=== PATIENT | male | born 1965 | race Caucasian/White ===

== ENCOUNTER 2017-05-24 14:13 | Inpatient (IN) | payer OTHER ==
[~2017-05-24] VITALS: Ht 152.4 cm; Wt 83.9 kg
[~2017-05-24 14:13] MED LIST: QUET300T2 PO
[2017-05-24 14:30] VITALS: BP 150/76
--- NOTE | 2017-05-24 14:30 | NUR ---
Pre-Admission Note: Client is seen in intake at this time. Appears flushed, anxious and irritable. He is alert and oriented x 4. Able to make his needs known. Able to answer questions regarding the admission process appropriately. Verbalized good understanding of the admission process. He reports NKA and with hx of seizure related to withdrawals, last one was on July 2016. He states that he is here to detox from ETOH, he reports drinking wine and vodka. Last drink was 2 hours prior to admission and drank 2 glasses of jacque. He reports that he has extensive hx of substance abuse in the family. But would not specify who. Reports that Dr. Roberts is his PCP and was last seen 3 weeks prior to coming in to detox. Client was educated on the admission process and will continue with the admission process when patient goes into the unit. Temp 97.5, Pulse 94 RR 19, O2 sat 94% RA BP 177/76 PL 0/10. CIWA 2 due to anxiety, mild sweats and mild agitation. Dr. Hinkle in to see the patient while in intake and will enter in admission orders.
[2017-05-24] MEDS ORDERED: ACETAMINOPHEN 325 MG TABLET PO PRN (14:45)
[2017-05-24] MEDS ORDERED: THIAMINE HCL 200 MG/2 ML VIAL IM ONE (14:45)
[2017-05-24] MEDS ORDERED: DICYCLOMINE HCL 20 MG TABLET PO PRN (14:45)
[2017-05-24] MEDS ORDERED: MAGNESIUM HYDROXIDE 30 ML LIQUID UDC PO PRN (14:45)
[2017-05-24] MEDS ORDERED: IBUPROFEN 600 MG TABLET PO PRN (14:45)
[2017-05-24] MEDS ORDERED: LORAZEPAM 2 MG/1 ML VIAL IM PRN (14:45)
[2017-05-24] MEDS ORDERED: LOPERAMIDE HCL 2 MG CAPSULE PO PRN ×2 (14:45)
[2017-05-24] MEDS ORDERED: MAG HYDROX/AL HYDROX/SIMETH 30 ML LIQUID UDC PO PRN (14:45)
[2017-05-24] MEDS ORDERED: LORAZEPAM 1 MG TABLET PO PRN (14:45)
[2017-05-24] MEDS ORDERED: ONDANSETRON 4 MG/2 ML VIAL IM PRN (14:45)
[2017-05-24] MEDS ORDERED: MIRALAX 17 GM POWD.PACK PO PRN (14:45)
[2017-05-24] MEDS ORDERED: ONDANSETRON ODT 4 MG TAB.RAPDIS SL PRN (14:45)
--- NOTE | 2017-05-24 14:46 | NUR ---
Admission Note: Admitted a 51 year old male under the care of Dr. Gaston Hinkle for medically supervised detoxification from ETOH. Alert and oriented x 4. Able to make his needs known. Respirations even and unlabored. No SOB noted. Skin warm and moist to touch. Body search done. No contraband was found. Skin check done. No skin breakdown noted, however appears flushed. Abdomen soft and non-distended with (+) BS in all 4 quadrants. No complains of N/V/D or constipation noted. LBM 05/24/2017 in AM. Bladder non-distended. No complains of dysuria noted. Voids independently with steady gait. Denies any past medical hx. However, reports taking Seroquel 300 mg PO at HS for sleep, which he did not bring. NKA. Wishes to be FULL CODE. Follows a regular diet at home. He reports that his longest period of sobriety was 6 years but does not remember when. He reports that his usual s/s of withdrawal are nausea, vomiting, diarrhea, tremors, anxiety and agitation. He reports that he lives with his and is a [employer] of a company. He reports that his last seizure was on July 2016 due to withdrawal. Educated patient on the unit's policy and protocols. Unable to provide urine at this time for UDs. Encouraged oral fluid intake and encouraged group participation to learn new skills to prevent relapse. Safety measures in place. On fall and seizure precautions. Call light kept in reach. Substance Hx as ff: 1. ETOH - drinks 2 bottles = 1.5L of red wine or vodka, QD to QOD x 4 months. Last use was 2 hours prior to admission and drank 2 glasses of jacque. Treatment Hx: 1. [facility] x 7 days in July.
--- NOTE | 2017-05-24 15:30 | NUR ---
New Orders: New orders received from MD that patient will be started on 5-day Ativan taper as ordered for ETOh withdrawal which will be started tomorrow AM. Orders noted and carried out. Taper orders were faxed to pharmacy.
[2017-05-24] MEDS: GABAPENTIN 300 MG CAPSULE PO SCH ×2 (15:33→20:42)
[2017-05-24 16:00] VITALS: BP 133/93
[2017-05-24 18:08] LABS: *AMPHETAMINE, URINE NEGATIVE (NEGATIVE); *BARBITURATE, URINE NEGATIVE (NEGATIVE); *CANNABINOID, URINE POSITIVE (NEGATIVE); *COCCAINE, URINE NEGATIVE (NEGATIVE); *OPIATE, URINE NEGATIVE (NEGATIVE); *PHENCYCLIDINE SCREEN,URINE NEGATIVE (NEGATIVE)
--- NOTE | 2017-05-24 18:16 | NUR ---
Urine Drug Screen Results: Patient's UDS resulted with (+) for marijuana. Patient reports using 1 gram of marijuana every day to every other day. Last use was yesterday.
[2017-05-24] MEDS: LORAZEPAM 1 MG TABLET PO PRN ×2 (18:41→20:42)
--- NOTE | 2017-05-24 18:42 | NUR ---
Ativan 1 mg PO given: CIWA 6, Patient presented with anxiety, agitation, mild BUE tremors and sweats. Medicated patient with Ativan 1 mg PO as ordered. Will monitor for effectiveness.
--- NOTE | 2017-05-24 18:55 | NUR ---
End of Shift Notes: Patient will be starting his 5-day Ativan taper tomorrow AM for ETOh withdrawal. VS monitored closely. No significant abnormalities noted. Withdrawal symptoms were closely monitored. CIWA upon admission was a 2 due to anxiety and mild sweats. Patient was given Vitamin B1 IM injection to left deltoid and was started on Gabapentin as ordered. PRN Ativan1 mg PO was given at 1842 with for CIWA 6. Safety precautions in place. Will continue to monitor closely.
[2017-05-24 19:09] LABS: BASOPHILS # (AUTO) 0.1 K/uL (0.0-8.0); BASOPHILS % (AUTO) 0.9 % (0.0-2.0); EOSINOPHILS % (AUTO) 0.2 % (0.0-7.0); HEMATOCRIT 51.1 % (40-50); HEMOGLOBIN 16.9 G/DL (14.0-18.0); LYMPHOCYTES % (AUTO) 29.9 % (20.5-51.5); MEAN CORPUSCULAR HEMOGLOBIN 31.5 UUG (27.0-31.0); MEAN CORPUSCULAR HGB CONC 33 g/dL (32.0-37.0); MEAN CORPUSCULAR VOLUME 95.1 FL (82.0-92.0); MONOCYTES % (AUTO) 10.3 % (0.0-11.0); NEUTROPHILS # (AUTO) 6.1 K/UL (1.8-8.9); NEUTROPHILS % (AUTO) 58.7 % (38.5-71.5); PLATELET COUNT (AUTO) 299 K/UL (150-450); RED BLOOD CELL COUNT(AUTO) 5.37 MIL/UL (4.7-6.1); WHITE BLOOD COUNT (AUTO) 10.2 K/UL (4.0-11.2)
[2017-05-24 19:18] LABS: BILIRUBIN,TOTAL 0.2 mg/dL (0.2-1.0); CREATININE 1.3 mg/dL (0.6-1.3); MAGNESIUM 1.8 mg/dL (1.8-2.4); POTASSIUM 4.2 mmol/L (3.5-5.1); TOTAL PROTEIN, SERUM 7.9 g/dL (6.4-8.2)
--- NOTE | 2017-05-24 19:42 | NUR ---
PRN REASSESSMENT: Patient was given ativan @1842 for anxiety, reassessed pt for effectiveness of med. Pt reports feeling less anxious. Will continue to monitor patient.
[2017-05-24 19:48] LABS: THYROID STIMULATING HORMONE 4.737 mIU/mL (0.358-3.740)
[2017-05-24 20:00] VITALS: BP 140/93
--- NOTE | 2017-05-24 20:00 | NUR ---
Start of Shift Notes: Patient is a 51 yrs old male admitted on 05/24/17 for ETOH and Marijuana dependency. Patient will be starting his 5-day Ativan taper tomorrow morning for ETOH withdrawal. Pt has tremors, body aches and flushing of face during assessment. Patient has a CIWA of 7, denies nausea and vomiting. Withdrawal symptoms will be closely monitor, has safety precautions in place.
--- NOTE | 2017-05-24 20:42 | NUR ---
PRN ATIVAN: Patient was given ativan @ 2041 for withdrawal symptoms, feeling anxious and didn't want to have a seizure. Will reassess patient for effectiveness of med.
--- NOTE | 2017-05-24 21:42 | NUR ---
PRN REASSESSMENT: Patient reported feeling better, going to participate in group activity tonight.
[2017-05-25] VITALS: BP 130/69
--- NOTE | 2017-05-25 04:00 | NUR ---
VITAL SIGN: Pt is stable and resting well, no distress noted. Addendum: 05/25/17 at 0411 by DENG MARSHALL RN Amended: Links added.
--- NOTE | 2017-05-25 06:51 | NUR ---
End of Shift Notes: Patient is a 51 yrs old male admitted on 05/24/17 for ETOH and Marijuana dependency. Patient will be starting his 5-day Ativan tapering this morning for ETOH withdrawal. Patient report tremors, body aches and flushing of face during shift. Ativan was given for withdrawal symptoms and was effective. Patient has a CIWA of 0. Pt slept 7 hrs during. All pertinent information endorsed to am nurse. Pt will continue to monitor by staff.
--- NOTE | 2017-05-25 07:15 | NUR ---
Start of Shift Notes: Received patient in his room. Alert and oriented x 4. Patient appears drowsy upon waking. Able to make needs known. Respirations even and unlabored. No SOB noted. Skin warm and dry to touch. Abdomen soft and non-distended with (+) BS in all 4 quadrants. No complains of N/V/D or constipation noted. Bladder non-distended. No complains of dysuria noted. Voids independently. Ambulatory ad vivek with steady gait. Patient is a 51 year old male admitted for ETOH dependence who was placed on a 5-day Ativan taper as ordered. No adverse reactions noted. Has past medical hx of seizures related to withdrawal symptoms. NKA. FULL CODE. Regular diet. On fall and seizure precautions. Educated patient on his current plan of care for the day and his medication regimen. Encouraged oral fluid intake and encouraged group participation to learn new skills to prevent relapse. Will continue to monitor closely.
--- NOTE | 2017-05-25 07:16 | NUR ---
Add'l notes: Prior to admission, patient was using 1.5L of red wine and vodka and 1 gram of Marijuana.
[2017-05-25 08:00] VITALS: BP 150/92
[2017-05-25] MEDS: LORAZEPAM 1 MG TABLET PO SCH ×4 (08:51→21:02)
[2017-05-25] MEDS: DOCUSATE SODIUM 250 MG CAPSULE PO SCH (08:52)
[2017-05-25] MEDS: MULTIVITAMINS,THERAPEUTIC TABLET PO SCH (08:52)
[2017-05-25] MEDS: GABAPENTIN 300 MG CAPSULE PO SCH ×3 (08:52→21:02)
[2017-05-25] MEDS: THIAMINE HCL 100 MG TABLET PO SCH (08:52)
[2017-05-25] MEDS: FOLIC ACID 1 MG TABLET PO SCH (08:52)
[2017-05-25] MEDS ORDERED: 5 DAY TAPER OF LORAZEPAM -SERENITY PROTOCOL PO PRN (09:00)
[2017-05-25] MEDS ORDERED: TUBERCULIN,PURIF.PROT.DERIV. 5 TU/0.1 ML TEST ID ONE (09:00)
[2017-05-25] MEDS ORDERED: LORAZEPAM 1 MG TABLET ONE (09:00)
--- NOTE | 2017-05-25 10:29 | NUR ---
MD Communication: BP Patient's BP in AM 150/92, Pulse [address] Hinkle of patient's current condition. Per MD, he will enter in orders. MD made aware of patient's BP readings.
--- NOTE | 2017-05-25 10:31 | NUR ---
MD Visit: Seen and examined by Dr. Hinkle at this time.
[2017-05-25 12:00] VITALS: BP 149/99
--- NOTE | 2017-05-25 12:31 | NUR ---
Therapist prompted client to attend daily group meetings at 11am and 3:30pm daily. Client stated that he would attend the next group.
[2017-05-25 16:00] VITALS: BP 144/98
--- NOTE | 2017-05-25 18:53 | NUR ---
End of Shift Notes: Patient started his 5-day Ativan taper today as ordered. No adverse reactions noted. Initiated taper today. Patients VS monitored closely q 4 hours. No significant abnormalities noted. Patients withdrawal symptoms were closely monitored. Initial CIWA 9, patient presented with anxiety, agitation, gross tremors, facial flushing, sweats, and fatigue. Last CIWA 5. Patient was able to participate in group and activities despite his withdrawal symptoms. Compliant with care and treatment. Per patient, Ativan has been helping him with his withdrawal symptoms. All needs met and attended. Will continue to monitor closely.
--- NOTE | 2017-05-25 19:15 | NUR ---
START OF SHIFT Received 51 year old male patient admitted on 05/24/17 for ETOH dependency. Pt is full code with NKA. He denies any PMHx of reports seizure in July 2016 for ETOH withdrawal. He reports drinking ETOH (red wine/vodka) 2 bottles daily for 4 months. Last dose was 2 glasses of red wine on 05/24/17. He also reports smoking Marijuana 1 gram for many years. Last dose was 1 gram on 05/23/17. He is placed on a 5 day Ativan taper started today and tolerating well. Per endorsement, pt did not receive or request PRN medications. Pt is alert and oriented x4, breathing is even and unlabored. Safety measures in place. Will monitor.
[2017-05-25 20:00] VITALS: BP 135/89
[2017-05-25] MEDS: QUETIAPINE FUMARATE 200 MG TABLET PO SCH (21:03)
[2017-05-26] VITALS: BP 129/70
--- NOTE | 2017-05-26 | NUR ---
CIWA DEFERRED 0000 CIWA deferred d/t pt lying in bed with eyes closed noted to be asleep. Respirations 16, breathing is even and unlabored, safety measures in place. Will continue to monitor.
--- NOTE | 2017-05-26 04:00 | NUR ---
VITALS REFUSED/ CIWA DEFERRED 0400 vitals refused. CIWA deferred d/t pt lying in bed with eyes closed noted to be asleep. Respirations 16, breathing is even and unlabored, safety measures in place. Will continue to monitor.
[2017-05-26 06:07] LABS: HEPATITIS B SURFACE AG Negative (Negative)
--- NOTE | 2017-05-26 07:12 | NUR ---
END OF SHIFT Pt is a 51 year old male patient admitted on 05/24/17 for ETOH dependency. Pt is full code with NKA. He denies any PMHx of reports seizure in July 2016 for ETOH withdrawal. He continues on a 5 day Ativan taper started today and tolerating well. He did not receive or request PRN medications. He slept a total of 9 hrs, Intake: 1000mL, Void:x4, BM:0, CIWA:5. Pt remains alert and oriented x4, breathing is even and unlabored. Safety measures in place. Will endorse to oncoming shift.
--- NOTE | 2017-05-26 07:38 | NUR ---
Start of Shift Notes: Received patient in his room. Alert and oriented x 4. Patient appears drowsy upon waking. Able to make needs known. Respirations even and unlabored. No SOB noted. Skin warm and dry to touch. Abdomen soft and non-distended with (+) BS in all 4 quadrants. No complains of N/V/D or constipation noted. Bladder non-distended. No complains of dysuria noted. Voids independently. Ambulatory ad vivek with steady gait. Patient is a 51 year old male admitted for ETOH dependence who was placed on a 5-day Ativan taper as ordered. No adverse reactions noted. Prior to admission, patient was using 1.5Litres of wine or vodka daily to every other day and 1 gram of marijuana. Has past medical hx of seizures related to withdrawal symptoms. NKA. FULL CODE. Regular diet. On fall and seizure precautions. Educated patient on his current plan of care for the day and his medication regimen. Encouraged oral fluid intake and encouraged group participation to learn new skills to prevent relapse. Will continue to monitor closely.
[2017-05-26 08:00] VITALS: BP 125/78
[2017-05-26 08:31] LABS: THYROID STIMULATING HORMONE 4.609 mIU/mL (0.358-3.740)
[2017-05-26 08:32] LABS: BILIRUBIN,DIRECT 0.1 mg/dL (0.0-0.2); BILIRUBIN,TOTAL 0.5 mg/dL (0.1-1.0); TOTAL PROTEIN, SERUM 7.5 g/dL (6.4-8.2)
[2017-05-26] MEDS: LORAZEPAM 1 MG TABLET PO SCH ×3 (08:43→20:29)
[2017-05-26] MEDS: GABAPENTIN 300 MG CAPSULE PO SCH ×3 (08:43→20:29)
[2017-05-26] MEDS: THIAMINE HCL 100 MG TABLET PO SCH (08:44)
[2017-05-26] MEDS: DOCUSATE SODIUM 250 MG CAPSULE PO SCH (08:44)
[2017-05-26] MEDS: FOLIC ACID 1 MG TABLET PO SCH (08:44)
[2017-05-26] MEDS: MULTIVITAMINS,THERAPEUTIC TABLET PO SCH (08:44)
[2017-05-26 12:00] VITALS: BP 138/81
[2017-05-26 16:00] VITALS: BP_SYST 151; BP_DIAS 103; BP_DIAS 94
[2017-05-26] MEDS: CLONIDINE HCL 0.1 MG TABLET PO PRN (16:45)
--- NOTE | 2017-05-26 16:46 | NUR ---
Clonidine 0.1mg PO given: Patient's BP 151/104. Also noted with tremors and sweats. Medicated patient with Clonidine 0.1mg PO as ordered. Will monitor for effectiveness.
[2017-05-26 17:46] VITALS: BP 139/93
--- NOTE | 2017-05-26 17:46 | NUR ---
Re-assessment: Per patient, PRN Clonidine was effective in reducing patient's tremors and BP. BP 139/91
--- NOTE | 2017-05-26 18:51 | NUR ---
End of Shift Notes: Patient started his 5-day Ativan taper today as ordered. No adverse reactions noted. Initiated taper today. Patients VS monitored closely q 4 hours. PRN Clonidine was given at 1645 due to elevated BP and tremors with help after 1 hour. Patients withdrawal symptoms were closely monitored. Initial CIWA 4, patient presented with anxiety, agitation, gross tremors, facial flushing, sweats, and fatigue. Last CIWA 3. Patient was able to participate in group and activities despite his withdrawal symptoms. Compliant with care and treatment. Per patient, Ativan has been helping him with his withdrawal symptoms. All needs met and attended. Will continue to monitor closely.
--- NOTE | 2017-05-26 19:15 | NUR ---
START OF SHIFT Received 51 year old male patient admitted on 05/24/17 for ETOH dependency. Pt is full code with NKA. He denies any PMHx of reports seizure in July 2016 for ETOH withdrawal. He reports drinking ETOH (red wine/vodka) 2 bottles daily for 4 months. Last dose was 2 glasses of red wine on 05/24/17. He also reports smoking Marijuana 1 gram for many years. Last dose was 1 gram on 05/23/17. He is placed on a 5 day Ativan taper started on 05/24/17 and tolerating well. Per endorsement, pt received PRN Clonidine d/t increased BP. Pt is alert and oriented x4, breathing is even and unlabored. Safety measures in place. Will continue to monitor.
[2017-05-26 20:00] VITALS: BP 143/95
[2017-05-26] MEDS: QUETIAPINE FUMARATE 200 MG TABLET PO SCH (20:30)
--- NOTE | 2017-05-27 | NUR ---
VITALS REFUSED/CIWA DEFERRED 0000 vitals were refused d/t pt wants to sleep. CIWA deferred d/t pt lying in bed with eyes closed noted to be asleep. Respirations 16, breathing is even and unlabored. Safety measures in place. Will monitor.
--- NOTE | 2017-05-27 04:00 | NUR ---
VITALS REFUSED/CIWA DEFERRED 0400 vitals were refused d/t pt wants to sleep. CIWA deferred d/t pt lying in bed with eyes closed noted to be asleep. Respirations 16, breathing is even and unlabored. Safety measures in place. Will continue to monitor.
--- NOTE | 2017-05-27 07:07 | NUR ---
END OF SHIFT Pt is a 51 year old male patient admitted on 05/24/17 for ETOH dependency. Pt is full code with NKA. He denies any PMHx of reports seizure in July 2016 for ETOH withdrawal. He continues on a 5 day Ativan taper started on 05/24/17 and tolerating well. Pt did not receive or request PRN medications. He slept a total of 9 hrs, Intake: 1240mL, Void: x3, BM:0, CIWA:3. Pt remains alert and oriented x4, breathing is even and unlabored. Safety measures in place. Endorsed to oncoming shift.
--- NOTE | 2017-05-27 07:34 | NUR ---
START OF SHIFT Pt 51 y/o male admitted for etoh dependence. Pt received in room on bed with eyes closed resting, but easily arousable to name. Pt alert and oriented to name, place, and time. PErrla. Skin warm and slightly moist to touch. Respirations even and unlabored. It was reported that pt slept for 9 hours last night. Bed on lowest position with side rails x2 up for safety. Call light within reach. No distress noted at this time.
[2017-05-27] MEDS: FOLIC ACID 1 MG TABLET PO SCH (08:22)
[2017-05-27] MEDS: GABAPENTIN 300 MG CAPSULE PO SCH ×3 (08:22→20:35)
[2017-05-27] MEDS: MULTIVITAMINS,THERAPEUTIC TABLET PO SCH (08:22)
[2017-05-27] MEDS: THIAMINE HCL 100 MG TABLET PO SCH (08:23)
[2017-05-27] MEDS: LORAZEPAM 1 MG TABLET PO SCH ×4 (08:23→20:35)
[2017-05-27 08:28] VITALS: BP 136/80
[2017-05-27] MEDS: DOCUSATE SODIUM 250 MG CAPSULE PO SCH (08:28)
[2017-05-27] MEDS: CLONIDINE HCL 0.1 MG TABLET PO PRN ×2 (13:29→20:35)
--- NOTE | 2017-05-27 13:29 | NUR ---
PRN Pt with ep=233/105. Catapres po prn per MD order given and tolerated well.
--- NOTE | 2017-05-27 13:42 | NUR ---
Therapist prompted client about group times. Client stated he will attend all groups.
[2017-05-27 14:03] VITALS: BP 144/105
--- NOTE | 2017-05-27 14:29 | NUR ---
PRN EVAL Pt with bp= 138/88
[2017-05-27 16:00] VITALS: BP 139/101
[2017-05-27 17:25] VITALS: BP 132/92
--- NOTE | 2017-05-27 18:09 | NUR ---
END OF SHIFT Pt 51 y/o male admitted for etoh dependence. Pt alert and oriented to name, place, and time. Perrla. Skin warm and slightly moist to touch. Respirations even and unlabored. Bilateral hand tremors noted slightly. Pt observed mostly in dining room throughout the day. Pt medication compliant and tolerated well. No ASE noted. Bed on lowest position with side rails x2 up for safety. Call light within reach. No distress noted at this time.
--- NOTE | 2017-05-27 19:00 | NUR ---
Start of Shift Patient Received. Patient is in activities room participating in a group meeting. Patient is a 51 year old male admitted on 05/24/17 for ETOH Dependence under the care of Dr. Hinkle. Patient is currently receiving a 5 day Ativan taper. Patient verbalizes no known allergies, wishes to be full code, following a regular diet, placed on fall and seizure precautions, skin noted intact. Patient noted with history of seizures with last one noted in Jul 2016. Per endorsement, patient is compliant with medications and tolerating plan of care well. Patient was given PRN Clonidine for elevated BP with medication noted to be effective. Last noted CIWA noted to be 2. All needs attended to promptly. Will continue plan of care as ordered.
[2017-05-27 20:33] VITALS: BP 164/97
--- NOTE | 2017-05-27 20:35 | NUR ---
PRN Medication Administration Patient noted with elevated blood pressure. Patient explained on receiving bad news earlier in the day that led patient to start smoking. Patient stated "I know I shouldn't do it because my blood pressure has been high all day." PRN Clonidine administered as per orders. Will continue to monitor.
[2017-05-27] MEDS: QUETIAPINE FUMARATE 200 MG TABLET PO SCH (20:48)
[2017-05-27 21:40] VITALS: BP 137/81
--- NOTE | 2017-05-27 21:40 | NUR ---
PRN Medication Reassessment Patient noted in bed watching TV. Blood Pressure reassessed and noted as 137/81 and pulse of 88. PRN Clonidine noted to be effective. Will continue to monitor.
[2017-05-28 00:30] VITALS: BP 130/82
[2017-05-28 04:00] VITALS: BP 123/75
--- NOTE | 2017-05-28 07:11 | NUR ---
End of Shift Patient is in bed sleeping. Breathing even and non labored. No signs of pain or discomfort noted. Patient is a 51 year old male admitted on 05/24/17 for ETOH Dependence under the care of Dr. Hinkle. Patient is currently receiving a 5 day Ativan taper. Patient verbalizes no known allergies, wishes to be full code, following a regular diet, placed on fall and seizure precautions, skin noted intact. Patient noted with history of seizures with last one noted in Jul 2016. Patient was given PRN Clonidine for elevated BP due to patient smoking with medication noted to be effective. All needs attended to promptly. Will endorse to continue plan of care as ordered.
[2017-05-28 08:00] VITALS: BP 124/80
--- NOTE | 2017-05-28 08:10 | NUR ---
START OF SHIFT: RECEIVED PT A/O X 4. HE PRESENTS WITH GUARDED AFFECT AND ANXIOUS MOOD. FINE TREMORS TO HANDS NOTED. HE STATES HE SLEPT WELL AND IS EATING GOOD. HE STATES HE IS ATTENDING GROUPS. ATIVAN TAPER IN PROGRESS. CIWA 4. ENCOURAGED INCREASED FLUIDS TO ASSIST IN FACILITATING DETOX PROCESS. WILL CONTINUE TO MONITOR AND OFFER SUPPORT.
[2017-05-28] MEDS: THIAMINE HCL 100 MG TABLET PO SCH (09:29)
[2017-05-28] MEDS: DOCUSATE SODIUM 250 MG CAPSULE PO SCH (09:29)
[2017-05-28] MEDS: MULTIVITAMINS,THERAPEUTIC TABLET PO SCH (09:29)
[2017-05-28] MEDS: LORAZEPAM 1 MG TABLET PO SCH ×3 (09:29→21:28)
[2017-05-28] MEDS: GABAPENTIN 300 MG CAPSULE PO SCH ×3 (09:29→21:28)
[2017-05-28] MEDS: FOLIC ACID 1 MG TABLET PO SCH (09:29)
[2017-05-28] MEDS ORDERED: HYDROXYZINE PAMOATE 25 MG CAPSULE PO PRN (11:15)
[2017-05-28 12:00] VITALS: BP 147/95
[2017-05-28] MEDS ORDERED: CLONIDINE HCL 0.1 MG TABLET PO ONE (12:00)
[2017-05-28 16:00] VITALS: BP 136/94
--- NOTE | 2017-05-28 18:35 | NUR ---
END OF SHIFT: PT CONTINUES ON ATIVAN TAPER. LAST CIWA 3. HE DID NOT ASK FOR PRNS AND STATES THE DETOX MEDS ARE EFFECTIVE. HE ATTENDED GROUPS AND ACTIVITIES AND INTERACTS WITH PEERS. WILL PASS SHIFT REPORT TO ONCOMING NIGHT NURSE.
--- NOTE | 2017-05-28 19:00 | NUR ---
Start of Shift Patient Received. Patient is in activities room participating in a group meeting. Patient is a 51 year old male admitted on 05/24/17 for ETOH Dependence under the care of Dr. Hinkle. Patient continues on 5 day Ativan taper. Per endorsement, no significant changes noted with patient. Patient is compliant with medications and tolerating plan of care well. Orders for Clonidine changed from PRN to Routine Q12H. Last noted CIWA noted to be 3. All needs attended to promptly. Will continue plan of care as ordered.
[2017-05-28 20:30] VITALS: BP 151/95
[2017-05-28] MEDS: QUETIAPINE FUMARATE 200 MG TABLET PO SCH (21:27)
[2017-05-28] MEDS: CLONIDINE HCL 0.1 MG TABLET PO SCH (21:28)
[2017-05-29 00:30] VITALS: BP 126/82
[2017-05-29 04:00] VITALS: BP 123/82
--- NOTE | 2017-05-29 07:07 | NUR ---
End of Shift Patient is in bed sleeping. Breathing even and non labored. No signs of pain or discomfort noted. Patient is a 51 year old male admitted on 05/24/17 for ETOH Dependence under the care of Dr. Hinkle. Patient continues receiving a 5 day Ativan taper. No PRN medications administered. All needs attended to promptly. Will endorse to continue plan of care as ordered.
[2017-05-29 08:00] VITALS: BP 116/74
--- NOTE | 2017-05-29 08:00 | NUR ---
START OF SHIFT: RECEIVED PT A/O X 4. HE PRESENTS WITH ANXIOUS MOOD. HE STATES HE SLEPT WELL AND IS EATING 100% OF MEALS. HE REPORTS HE IS ATTENDING GROUPS. ATIVAN TAPER IN PROGRESS. SKYE 2. ENCOURAGED INCREASED FLUIDS TO ASSIST IN FACILITATING DETOX PROCESS. WILL CONTINUE TO MONITOR AND OFFER SUPPORT.
[2017-05-29] MEDS: MULTIVITAMINS,THERAPEUTIC TABLET PO SCH (08:40)
[2017-05-29] MEDS: THIAMINE HCL 100 MG TABLET PO SCH (08:40)
[2017-05-29] MEDS: GABAPENTIN 300 MG CAPSULE PO SCH ×3 (08:41→20:56)
[2017-05-29] MEDS: LORAZEPAM 1 MG TABLET PO SCH ×2 (08:41→20:56)
[2017-05-29] MEDS: CLONIDINE HCL 0.1 MG TABLET PO SCH ×3 (08:41→20:55)
[2017-05-29] MEDS: FOLIC ACID 1 MG TABLET PO SCH (08:41)
[2017-05-29 12:00] VITALS: BP 130/92
[2017-05-29 16:00] VITALS: BP 113/78
--- NOTE | 2017-05-29 18:39 | NUR ---
END OF SHIFT: PT CONTINUES ON ATIVAN TAPER. LAST CIWA 3. HE STATES HE HAD SOME NERVOUS ENERGY TODAY AND PACED AROUND THE UNIT FOR A WHILE. HE STATES DETOX MEDS ARE EFFECTIVE. HE ATTENDED GROUPS AND ACTIVITIES AND INTERACTED WITH PEERS. NO PRNS GIVEN ON THIS SHIFT.WILL PASS SHIFT REPORT TO ONCOMING NIGHT NURSE.
--- NOTE | 2017-05-29 19:00 | NUR ---
Start of Shift Patient Received. Patient is in activities room participating in a group meeting. Patient is a 51 year old male admitted on 05/24/17 for ETOH Dependence under the care of Dr. Hinkle. Patient continues on 5 day Ativan taper. Per endorsement, patient continues on plan of care as ordered with no significant changes noted. Patient is compliant with medications and tolerating plan of care well. Last noted CIWA noted to be 3. All needs attended to promptly. Will continue plan of care as ordered.
[2017-05-29 20:14] VITALS: BP 137/82
[2017-05-29] MEDS: QUETIAPINE FUMARATE 200 MG TABLET PO SCH (20:56)
[2017-05-30 00:48] VITALS: BP 122/76
[2017-05-30 04:00] VITALS: BP 127/81
--- NOTE | 2017-05-30 07:20 | NUR ---
Start of Shift Report from night nurse: pt is 51 y/o male her for Etoh r/t 2 bottles of Wine 3L daily for 4 months and Marijuana 1 gram daily for "many years"; 5 day Ativan taper ordered. Pt is a full code, regular diet, fall and seizure precautions ordered. Hhx: seizure due to Etoh w/d July 2016, relapse since pt was here 07/2016. V/S stable. Skin is intact. No PRN medications given last night. No new orders or abnormal labs endorsed to me. Pt is asleep in room. Will cont. to monitor the pt. Addendum: 05/30/17 at 1028 by SHELIA FOUNTAIN RN Clark CHEUNG 2
[2017-05-30 08:00] VITALS: BP 110/74
[2017-05-30] MEDS: FOLIC ACID 1 MG TABLET PO SCH (08:44)
[2017-05-30] MEDS: MULTIVITAMINS,THERAPEUTIC TABLET PO SCH (08:44)
[2017-05-30] MEDS: CLONIDINE HCL 0.1 MG TABLET PO SCH ×3 (08:44→21:55)
[2017-05-30] MEDS: GABAPENTIN 300 MG CAPSULE PO SCH ×3 (08:44→21:55)
[2017-05-30] MEDS: THIAMINE HCL 100 MG TABLET PO SCH (08:44)
[2017-05-30] MEDS ORDERED: CLON0.1T14 PO (10:59)
[2017-05-30] MEDS ORDERED: GABA-534 PO (10:59)
[2017-05-30 12:00] VITALS: BP 131/90
[2017-05-30 13:37] LABS: *AMPHETAMINE, URINE NEGATIVE (NEGATIVE); *BARBITURATE, URINE NEGATIVE (NEGATIVE); *CANNABINOID, URINE NEGATIVE (NEGATIVE); *COCCAINE, URINE NEGATIVE (NEGATIVE); *OPIATE, URINE NEGATIVE (NEGATIVE); *PHENCYCLIDINE SCREEN,URINE NEGATIVE (NEGATIVE)
[2017-05-30 16:00] VITALS: BP 135/94
--- NOTE | 2017-05-30 18:54 | NUR ---
End of Shift Report to night nurse: pt is 51 y/o male her for Etoh r/t 2 bottles of Wine 3L daily for 4 months and Marijuana 1 gram daily for "many years"; 5 day Ativan taper ordered. Pt is a full code, regular diet, fall and seizure precautions ordered. Hhx: seizure due to Etoh w/d July 2016, relapse since pt was here 07/2016. Features symmetrical, PERRLA 3mm, no WILLIAMSON, or dizziness noted, and pt denies numbness or tingling, tremors present but pt states that it's r/t coffee intake and feels as if he's ready for d/c tomorrow; Dr. Hinkle is notified. Pt denies chest pain, pulses present and V/S stable. Clear lung sounds in bilateral U/L lobes, no SOB noted. Active bowel sounds in all 4 quads, no N/V/D noted and last BM WNL is today during my shift. Pt denies dysuria. Skin is intact. No PRN medications given during my shift. No PRN medications given during my shift. Pt attended group therapy and activities during my shift. No hallucinations, delusions or suicidal ideations noted. New orders for D/C tomorrow with urine obtained. Last CIWA 1
--- NOTE | 2017-05-30 19:35 | NUR ---
START OF SHIFT NOTE Pt is a 51 y/o male admitted for ETOH and Marijuana dependence. Pt has NKA but reported a PMH of seizure r/t w/d in July of 2016. Per day shift nurse pt completed a 5 day Ativan taper and is scheduled for discharge tomorrow. Pt didn't receive any PRNS during the day shift. Last CIWA: 1 (1600). At this time pt is on his way to a smoke break. Pt had his vitals taken (all within normal limits) Pt denies any pain/discomfort. Skin is dry and intact with no tremors noted at this moment. Pt was encouraged to notify staff of any changes in condition or of any concerns. Pt verbalized an understanding. All safety measures in place. Will continue to monitor.
[2017-05-30 20:00] VITALS: BP 145/89
[2017-05-30] MEDS: QUETIAPINE FUMARATE 200 MG TABLET PO SCH (21:55)
--- NOTE | 2017-05-31 01:32 | NUR ---
VITALS REFUSED/ CIWA DEFERRED Pt refused to have vitals taken at this time. Pt was encouraged x 3 with risks and benefits explained, but the pt still declined. CIWA assessment deferred until pt is awake. All safety measures in place. Will continue to monitor Addendum: 05/31/17 at 0144 by NOHELIA LEIJA LVN Amended: Links added.
--- NOTE | 2017-05-31 04:00 | NUR ---
VITALS REFUSED/ CIWA DEFERRED Pt refused to have vitals taken at this time. Pt was encouraged x 3 with risks and benefits explained, but the pt still declined. CIWA assessment deferred until pt is awake. All safety measures in place. Will continue to monitor. Addendum: 05/31/17 at 0445 by NOHELIA LEIJA LVN Amended: Links added.
--- NOTE | 2017-05-31 05:35 | NUR ---
NURSING NOTE Pt is asleep in bed with no changes in condition. Breathing is even an unlabored. All safety measures in place. Endorsed to nurse A.H to ensure monitoring is continued.
--- NOTE | 2017-05-31 06:30 | NUR ---
0630 Patient slept a total of 6 hours and he had 4 voids and no stools. Total intake was 1,750 ml p.o. No Prn medications given this shift. V/SS afebrile, last CIWA was 0 at 1999. Patient is presently sleeping comfortably in stable condition with eyes closed and respirations quiet, even, unlabored at 12.
--- NOTE | 2017-05-31 07:17 | NUR ---
Start of shift note; Received report from night nurse. Patient is a 51 year old male admitted on 05/24/17 for ETOH withdrawals. Patient was placed on 5 day Ativan taper, completed treatment without any adverse reactions. NKA, full code status, regular diet. Patient remained compliant with treatment, medications were effective in reducing withdrawal symptoms per patient's report. Patient is AOX4. Patient is medically cleared for discharge today. Patient is on fall and seizure precaution. Bed in lowest position, call light reach. Will continue to monitor patient.
[2017-05-31 08:00] VITALS: BP 132/88
[2017-05-31 08:02] VITALS: BP 132/88
[2017-05-31] MEDS: FOLIC ACID 1 MG TABLET PO SCH (08:02)
[2017-05-31] MEDS: CLONIDINE HCL 0.1 MG TABLET PO SCH (08:02)
[2017-05-31] MEDS: GABAPENTIN 300 MG CAPSULE PO SCH (08:02)
[2017-05-31] MEDS: THIAMINE HCL 100 MG TABLET PO SCH (08:02)
[2017-05-31] MEDS: MULTIVITAMINS,THERAPEUTIC TABLET PO SCH (08:02)
--- NOTE | 2017-05-31 08:12 | NUR ---
Discharge note; Patient is AOX4. All patient's valuables, prescriptions and belongings given to patient. Patient completed treatment without any adverse reactions.Patient is medically cleared for discharge. Patient left the hospital at exactly 0812 on 05/31/17. Patient left in a stable condition. Met all needs.
== END 2017-05-31 08:12 | disposition home or self-care (01) | DRG 895 ==
LOC: SRC 14:15
PROVIDERS: ADMIT Internal Medicine; ATTEND Internal Medicine
DX: F10.230 Alcohol dependence with withdrawal, uncomplicated (principal); F10.220 Alcohol dependence with intoxication, uncomplicated; K70.10 Alcoholic hepatitis without ascites; Y90.9 Presence of alcohol in blood, level not specified; E03.9 Hypothyroidism, unspecified; I15.9 Secondary hypertension, unspecified; G47.00 Insomnia, unspecified; F12.10 Cannabis abuse, uncomplicated; E07.81 Sick-euthyroid syndrome
CPT/HCPCS: 36415; 70030-TC; 80307; 80349; 83690; 83735; 84443; 85025; 86580; 86592; 86705; 86803; 87340; 87806; A4663; G0480; J3411